=== PATIENT | male | born 1970 | race Caucasian/White ===

== ENCOUNTER 2023-12-08 04:30 | Emergency (ER) | payer OTHER ==
[~2023-12-08] VITALS: Ht 177.8 cm; Wt 122.5 kg
[~2023-12-08 04:30] MED LIST: Crutch1 EACH MISC; EPIN.3I IM; HYDACE10B PO; NAPR500 PO; Norco 5-325 Ta1 EACH PO; Omeprazole20 M1 PO; PERM5TC TOP; PROM25 PO; RANI150 PO; TRIA80TC TOP; VITAMIN D3 PO
[2023-12-08 04:38] VITALS: BP 154/102
[2023-12-08] MEDS ORDERED: LOSARTAN POTASS25 M2 PO (04:41)
== END 2023-12-08 05:08 | disposition home or self-care (01) ==
LOC: ER 04:30
DX: S43.421A Sprain of right rotator cuff capsule, initial encounter (principal); X50.1XXA Overexertion from prolonged static or awkward postures, initial encounter; Z79.899 Other long term (current) drug therapy; Z91.030 Bee allergy status; F17.200 Nicotine dependence, unspecified, uncomplicated
CPT/HCPCS: 99283

== ENCOUNTER 2024-08-12 06:12 | Day surgery (SDC) | payer OTHER ==
[~2024-08-12] VITALS: Ht 177.8 cm; Wt 119.2 kg
[~2024-08-12 06:12] MED LIST changes: +LOSARTAN POTASS25 M2 PO; +NS 1,000 ML IV ONE; +NS 1,000 ML ONE; +Tranexamic Acid 100 ML IV ONE
[2024-08-12] MEDS ORDERED: NS 1,000 ML IV ONE ×2 (06:42→06:43)
[2024-08-12] MEDS ORDERED: Bupivacaine 0.5% W/EPI 1:200000 SDV 30 ML Vial ONE (06:44)
[2024-08-12] MEDS ORDERED: CefTRIAXone Sodium 2,000 MG in NS 100 ML IV SCH (06:45)
[2024-08-12] MEDS ORDERED: Morphine Sulfate 15 MG TABCR PO SCH (06:45)
[2024-08-12] MEDS ORDERED: Acetaminophen 500 MG Tab ONE (07:03)
[2024-08-12] MEDS ORDERED: propofoL 20 ML IV ONE (07:08)
[2024-08-12] MEDS ORDERED: Midazolam HCl 1MG / ML 2ML Vial ONE (07:08)
--- NOTE | 2024-08-12 07:27 | NUR ---
08/12/24 0727 Deja Ewing 0718- TIME OUT PERFORMED IN PERIOP HOLDING AREA PRIOR TO R INTRASCALENE BLOCK. PROCEDURE STARTED AT 0722, PT VITAL WERE MONITORED AND REMAINED STABLE. PT TOLERATED PROEDURE WELL.
[2024-08-12] MEDS ORDERED: Ondansetron HCl 2 MG / ML 2ML Vial ONE (07:42)
[2024-08-12] MEDS ORDERED: Dexamethasone Sod Phos 10 MG/ML 1ML VIAL ONE (07:42)
[2024-08-12] MEDS ORDERED: Rocuronium Bromide 10 MG/ML 5ML Injection IV ONE (07:53)
--- NOTE | 2024-08-12 08:07 | NUR ---
08/12/[address] AND CORRINE HUA PREPPED WITH ALCOHOL AND PEROXIDE. THOE CASTLE PREPPED X2 WITH CHLORPREP
[2024-08-12] MEDS ORDERED: Sugammadex Sodium 200 MG/2ML SDV (100 MG/ML) ONE (09:26)
[2024-08-12] MEDS ORDERED: Ketorolac Tromethamine 30mg Vial ONE (09:40)
[2024-08-12 10:41] VITALS: BP 129/74
--- NOTE | 2024-08-12 11:18 | NUR ---
08/12/24 1118 Negar Rodriguez NO C/O PAIN, PT DENIED NAUSEA. PT PLEASANT AND COOPERATIVE WITH CARE. PT EDUCATION PROVIDED. ALL QUESTIONS WERE ANSWERED AND CONCERNS ADDRESSED. VSS. PT ASSISTED TO TO BE TRANSPORTED TO FAMILY MEMBER'S CAR.
== END 2024-08-12 11:15 | disposition home or self-care (01) ==
LOC: ORSCSDS 06:12
PROVIDERS: Orthopaedic Surgery
PROC: 0RRJ00Z Replacement of Right Shoulder Joint with Reverse Ball and Socket Synthetic Substitute, Open Approach (ICD-10-PCS; principal; 2024-08-12 07:30)
DX: M19.011 Primary osteoarthritis, right shoulder (principal); M75.121 Complete rotator cuff tear or rupture of right shoulder, not specified as traumatic; K21.9 Gastro-esophageal reflux disease without esophagitis; E66.01 Morbid (severe) obesity due to excess calories; Z68.37 Body mass index [BMI] 37.0-37.9, adult; I10 Essential (primary) hypertension; Z87.891 Personal history of nicotine dependence; Z79.899 Other long term (current) drug therapy
CPT/HCPCS: 73030; A9270; C1713; C1776; J0696; J1100; J1885; J2250; J2405; J2704; J7030

== ENCOUNTER 2025-03-26 06:10 | Day surgery (SDC) | payer OTHER ==
[2025-03-26] VITALS (31 sets, daily range): BP systolic 100–178; BP diastolic 64–137
[~2025-03-26] VITALS: Ht 177.8 cm; Wt 125.7 kg
[~2025-03-26 06:10] MED LIST changes: +DULO60 PO; +LOSA50 PO; -LOSARTAN POTASS25 M2 PO; -NS 1,000 ML IV ONE; -NS 1,000 ML ONE; +OMEP20ER PO; -Tranexamic Acid 100 ML IV ONE
--- NOTE | 2025-03-26 06:50 | NUR ---
Ambulatory in Day Surgery History, Chart, Medications and Allergies reviewed before start of procedure. Pre-Op teaching done. Pt verbalizes understanding. Patient States Post-Procedure ride home has been arranged.
[2025-03-26] MEDS ORDERED: Benzocaine Oral Spray 0.5ML UD ONE (07:05)
[2025-03-26] MEDS ORDERED: Labetalol HCL 5 MG/ML 20MLVIAL IV ONE (07:05)
--- NOTE | 2025-03-26 07:47 | NUR ---
03/26/25 0747 Levi Haider MONITOR INTACT WITH CONTINUOUS PULSE OXIMETRY, CONTINUOUS END TITAL CO2, 3-LEAD EKG AND INTERMITTENT BLOOD PRESSURE.Bite Block PlacedO2 VIA POM INTACT THROUGHOUT SEDATION/PROCEDURE. ANESTHESIA PER DR. MARR
--- NOTE | 2025-03-26 08:41 | NUR ---
TOLD PT TO SEE PCP FOR SLEEP APNEA AND HYPERTENSION Discharged via wheelchair to private car for ride home. Discharged via wheelchair to private car for ride home. Patient States Post-Procedure ride home has been arranged. Discharge instructions reviewed with patient. Patient verbalizes understanding. Copy given to patient to take home.
== END 2025-03-26 23:00 | disposition home or self-care (01) ==
LOC: ORSCMMR 06:10 → ORD 07:30 → ORSCMMR 23:00
PROVIDERS: Internal Medicine Gastroenterology
PROC: 0DBP8ZX Excision of Rectum, Via Natural or Artificial Opening Endoscopic, Diagnostic (ICD-10-PCS; principal; 2025-03-26 07:30)
PROC: 0DBK8ZX Excision of Ascending Colon, Via Natural or Artificial Opening Endoscopic, Diagnostic (ICD-10-PCS; principal; 2025-03-26 07:30)
PROC: 0DBN8ZX Excision of Sigmoid Colon, Via Natural or Artificial Opening Endoscopic, Diagnostic (ICD-10-PCS; principal; 2025-03-26 07:30)
PROC: 0DJ08ZZ Inspection of Upper Intestinal Tract, Via Natural or Artificial Opening Endoscopic (ICD-10-PCS; principal; 2025-03-26 07:30)
DX: K21.00 Gastro-esophageal reflux disease with esophagitis, without bleeding (principal); K22.10 Ulcer of esophagus without bleeding; Z12.11 Encounter for screening for malignant neoplasm of colon; Z80.0 Family history of malignant neoplasm of digestive organs; D12.2 Benign neoplasm of ascending colon; K63.5 Polyp of colon; K62.1 Rectal polyp; F32.A Depression, unspecified; I10 Essential (primary) hypertension; E66.01 Morbid (severe) obesity due to excess calories; Z68.39 Body mass index [BMI] 39.0-39.9, adult; Z79.899 Other long term (current) drug therapy
CPT/HCPCS: 88305; A9270; J2704; J7120